=== PATIENT | male | born 1985 | race Caucasian/White ===

== ENCOUNTER 2021-04-28 17:05 | Emergency (ER) | payer MEDICAID ==
[~2021-04-28] VITALS: Ht 149.9 cm; Wt 86.2 kg
[2021-04-28 17:43] VITALS: BP 157/100
[2021-04-28] MEDS ORDERED: PANTOPRAZOLE 40 MG TABEC PO ONE (18:05)
--- NOTE | 2021-04-28 18:06 | NUR ---
36 Y/O M BIB SELF FROM HOME, C/O ABD PAIN RADIATES TO LOWER BACK 2/10 PAIN FOR 1 WEEK. DENIES N/V/D, CONSTIPATION, DYSURIA, FREQUENCY, OR RETENTION. PT STATES "WHEN I EAT, I FEEL LIKE MY STOMACH IS INFLAMMED. STATES HE WAS DIAGNOSED WITH GASTRITIS BUT WANTS SECOND OPINION. AAOX4. VSS. PMH: GASTRITIS NKA MED: UNABLE TO RECALL NAME
[2021-04-28 18:24] LABS: BASOPHILS # (AUTO) 0.1 K/uL (0.00-0.22); BASOPHILS % (AUTO) 0.8 % (0.0-2.0); EOSINOPHILS # (AUTO) 0.1 K/uL (0-0.4); EOSINOPHILS % (AUTO) 0.6 % (0.0-4.0); HEMATOCRIT 46.7 % (36-52); HEMOGLOBIN 15.9 g/dL (12.0-18.0); LYMPHOCYTES # (AUTO) 2.9 K/uL (2.0-11.5); LYMPHOCYTES % (AUTO) 28.8 % (20.5-51.1); MEAN CORPUSCULAR HEMOGLOBIN 30 pg (27-31); MEAN CORPUSCULAR HGB CONC 34 g/dL (33-37); MEAN CORPUSCULAR VOLUME 89.1 fL (80-94); MONOCYTES # (AUTO) 0.6 K/uL (0.8-1.0); MONOCYTES % (AUTO) 5.9 % (1.7-9.3); NEUTROPHILS # (AUTO) 6.3 K/uL (1.8-7.7); NEUTROPHILS % (AUTO) 63.9 % (42.2-75.2); PLATELET COUNT (AUTO) 241 K/uL (140-450); RED BLOOD CELL COUNT(AUTO) 5.24 MIL/uL (4.20-6.10); RED CELL DISTRIBUTION WIDTH 12.8 % (11.6-13.7); WHITE BLOOD COUNT (AUTO) 9.9 K/uL (4.8-10.8)
[2021-04-28 18:25] LABS: APPEARANCE,URINE CLEAR (CLEAR); BILIRUBIN,URINE NEGATIVE (NEGATIVE); BLOOD, URINE NEGATIVE (NEGATIVE); COLOR,URINE YELLOW (YELLOW); LEUKOCYTE ESTERASE ,URINE NEGATIVE (NEGATIVE); NITRITE, URINE NEGATIVE (NEGATIVE); UGLUCOSE NEGATIVE (NEGATIVE)
--- NOTE | 2021-04-28 18:25 | NUR ---
Pt taken to XR via W/C.
[2021-04-28 18:39] LABS: ALBUMIN 4.4 g/dL (3.4-5.0); ANION GAP 10.2 (8-16); CARBON DIOXIDE 27.5 mmol/L (21-32); CREATININE 0.8 mg/dL (0.6-1.3); POTASSIUM 3.7 mmol/L (3.5-5.1); TOTAL BILIRUBIN 0.6 mg/dL (0.0-1.0)
--- NOTE | 2021-04-28 19:16 | NUR ---
Pt report given to POLLY Sherwood. Transfer of care at this time.
--- NOTE | 2021-04-28 19:22 | NUR ---
PT. SITTING ON BED COMFORTABLY, ASKED IF THERE WAS ANY PAIN AT THIS TIME PT. DENIES. WILL CONTINUE TO MONITOR
[2021-04-28] MEDS ORDERED: MAGNESIUM CITRATE 300 ML BTL PO ONE (19:40)
[2021-04-28] MEDS ORDERED: PANT40EC PO (19:54)
[2021-04-28 20:05] VITALS: BP 157/100
--- NOTE | 2021-04-28 20:06 | NUR ---
Patient discharged with v/s stable. Written and verbal after care instructions given and explained. Patient alert, oriented and verbalized understanding of instructions. Ambulatory with steady gait. All questions addressed prior to discharge. ID band removed. Patient advised to follow up with PMD. Rx of PROTONIX given. Patient educated on indication of medication including possible reaction and side effects. Opportunity to ask questions provided and answered.
== END 2021-04-28 20:06 | disposition home or self-care (01) ==
LOC: MED 17:05
DX: R10.13 Epigastric pain (principal); R11.2 Nausea with vomiting, unspecified; F17.210 Nicotine dependence, cigarettes, uncomplicated; Z71.6 Tobacco abuse counseling
CPT/HCPCS: 36415; 74018; 80053; 81003; 83605; 83690; 84484; 85025; 93005; 99285

== ENCOUNTER 2023-03-14 18:42 | Emergency (ER) | payer MEDICAID ==
[~2023-03-14] VITALS: Ht 165.1 cm; Wt 92.5 kg
[~2023-03-14 18:42] MED LIST: PANT40EC PO
[2023-03-14 18:53] VITALS: BP 161/116
--- NOTE | 2023-03-14 20:01 | NUR ---
PT AMBULATES TO BED 9
--- NOTE | 2023-03-14 20:10 | NUR ---
A/Ox4. NOT IN DISTRESS, ATTACHED TO SWIM INSTRUCTOR. PT. IS MOHAWK SPEAKING. LEGAL BILLING COORDINATOR PROVIDED. NAME: ROMULO WITH ID # [id number]. PT. VERBALIZED UNDERSTANDING.
--- NOTE | 2023-03-14 20:10 | NUR ---
PT. STATED PAIN SCALE "6/10"
--- NOTE | 2023-03-14 21:24 | NUR ---
SEEN BY DR. CEBALLOS
[2023-03-14] MEDS ORDERED: GABA300C PO (21:39)
[2023-03-14] MEDS ORDERED: ACET-10509 PO (21:39)
[2023-03-14] MEDS ORDERED: CYCL-711 PO (21:40)
[2023-03-14 21:55] VITALS: BP 167/83
[2023-03-14] MEDS ORDERED: ACETAMINOPHEN EXTRA STRENGTH 500 MG TAB PO ONE (21:55)
[2023-03-14] MEDS ORDERED: KETOROLAC 60 MG/2 ML VIAL IM ONE (21:55)
[2023-03-14] MEDS ORDERED: CYCLOBENZAPRINE 10 MG TAB PO ONE (21:55)
--- NOTE | 2023-03-14 21:55 | NUR ---
Patient discharged with v/s stable. Written and verbal after care instructions given and explained. Patient verbalized understanding. Ambulatory with steady gait. All questions addressed prior to discharge. Advised to follow up with PMD.
== END 2023-03-14 21:55 | disposition home or self-care (01) ==
LOC: MED 18:42
DX: S39.012A Strain of muscle, fascia and tendon of lower back, initial encounter (principal); Z87.448 Personal history of other diseases of urinary system; Z79.899 Other long term (current) drug therapy; X50.0XXA Overexertion from strenuous movement or load, initial encounter; Y92.89 Other specified places as the place of occurrence of the external cause; Y93.89 Activity, other specified; Y99.0 Civilian activity done for income or pay
CPT/HCPCS: 96372; 99283; J1885